=== PATIENT | male | born 1960 | race Caucasian/White ===

== ENCOUNTER → 2017-07-20 | Emergency (ER) | payer OTHER ==
[~2017-07-20] VITALS: Ht 175.3 cm; Wt 94.8 kg
[~2017-07-20] MED LIST: KETO10TA2 PO; MEDROLPACK PO; NORFLEX100MG PO
== END | disposition home or self-care (01) ==
LOC: ER 14:26
DX: M79.642 Pain in left hand (principal); M79.641 Pain in right hand

== ENCOUNTER 2023-03-06 20:04 | Inpatient (IN) | payer OTHER ==
[~2023-03-06] VITALS: Ht 172.7 cm; Wt 108.9 kg
--- NOTE | 2023-03-06 20:24 | NUR ---
SE RECIBE PTE DESORIENTADO X3 FAMILIAR REFIERE QUE [facility] LA [facility] VARIAS HORAS DESPUES LA FAMILIAR LO ENCONTRO VOMITADO Y NO RESPODIA. SE OBSERVA PTE CON CON DEBILIDAD Y NO SIGUE COMANDOS. SE REALIZA DEXTRO 143, SE REALIZA EKG Y SE PRESENTA A DR. CASTILLO. SE JOSELYN VITALES Y SE SEN EN OBSERVACION.
--- NOTE | 2023-03-06 21:06 | NUR ---
PTE EVALUADO POR MD [facility] [place] [facility] A PTE SE EDUCA A PE SOBRE EL MSIMO Y REFEIRE ENTENDER. SE LLEVA ACABO ORDENES BAJO MEDIDAS ACEPTICAS. PTE PEND A RESULTADOS DE LAB.
[2023-03-06 21:09] LABS: HEMATOCRIT 40.4 % (39.0-48.0); MEAN CELL VOLUME 96.7 fL (80.0-100.00); MEAN CORPUSCULAR HEMOGLOBIN 33.6 pg (27.00-32.0); MEAN CORPUSCULAR HGB CONC 34.7 g/dl (32.0-36.0); PLATELET COUNT 149 K/uL (150-450); RED BLOOD COUNT 4.18 M/uL (4.00-6.00)
[2023-03-06 21:24] LABS: ABG PH 7.397 (7.35-7.45); ABG pCO2 33.8 mmHg (35-45); BASE EXCESS -3.6 mmol/l; BICARBONATE 20.3 mmol/l (23-25); SaO2 89.8 %; Tco2 21.4 mmol/l
[2023-03-06 21:26] LABS: ABG PO2 58.9 mmHg (80-100)
[2023-03-06 21:27] LABS: allen test SATISFACTORY; o2 21 %; puncture site RADIAL RIGHT
[2023-03-06 21:42] LABS: CALCIUM 8.9 mg/dL (8.5-10.1); CREATININE SERUM 2.1 mg/dL (0.70-1.30); GFR 32.27; POTASSIUM 4.3 mEq/L (3.5-5.1)
[2023-03-06 21:48] LABS: URINE APPEARANCE Clear; URINE BILIRRUBIN Negative (NEGATIVE); URINE BLOOD Negative; URINE COLOR Yellow; URINE GLUCOSE Negative (NEGATIVE); URINE LEUKOCYTE Negative; URINE NITRATE Negative; URINE PROTEIN Negative (NEGATIVE)
[2023-03-06 21:51] LABS: URINE BACTERIA 12.5 uL (0.0-1933); URINE EPITHELIAL CELLS 5.2 uL (0.0-38.8); URINE RBC 6.7 uL (0.0-20.8); URINE WBC 3.7 uL (0.0-23.2)
[2023-03-07 02:14] LABS: INR 1.1; PARTIAL THROMBOPLASTIN TIME 22.6 SECONDS (22.0-34.0); PROTHROMBIN TIME 11.5 SECONDS (9.0-11.5)
[2023-03-07 15:38] LABS: ALBUMIN 3.2 gm/dL (3.4-5.0); BILIRUBIN TOTAL 0.4 mg/dL (0.3-1.2); BILIRUBIN,CONJUGATED 0.21 mg/dL (0.0-0.2); BILIRUBIN,UNCONJUGATED 0.19 mg/dL (0.0-0.6); TOTAL PROTEIN 6.4 gm/dL (6.4-8.2)
[2023-03-08 05:26] LABS: HEMATOCRIT 37.2 % (39.0-48.0); HEMOGLOBIN 12.4 g/dL (13-16.00); MEAN CELL VOLUME 98.2 fL (80.0-100.00); MEAN CORPUSCULAR HEMOGLOBIN 32.7 pg (27.00-32.0); MEAN CORPUSCULAR HGB CONC 33.3 g/dl (32.0-36.0); PLATELET COUNT 138 K/uL (150-450); RED BLOOD COUNT 3.79 M/uL (4.00-6.00); RED CELL DISTRIBUTION WIDTH 13.9 % (11.5-14.5)
[2023-03-08 06:00] LABS: ALBUMIN 2.8 gm/dL (3.4-5.0); BILIRUBIN TOTAL 0.27 mg/dL (0.3-1.2); CALCIUM 8.1 mg/dL (8.5-10.1); CREATININE SERUM 1.69 mg/dL (0.70-1.30); GFR 41.46; GLOBULINA 2.9 G/DL (2.4-3.5); PHOSPHOROUS 2.2 mg/dL (2.5-4.9); POTASSIUM 4.09 mEq/L (3.5-5.1); TOTAL PROTEIN 5.7 gm/dL (6.4-8.2)
[2023-03-08 06:01] LABS: C-REACTIVE PROTEIN 6.02 MG/DL (0.00-0.29)
[2023-03-10 08:03] LABS: CALCIUM 8.9 mg/dL (8.5-10.1); CREATININE SERUM 1.77 mg/dL (0.70-1.30); GFR 39.3; MAGNESIUM 2.1 mg/dL (1.8-2.4); POTASSIUM 3.79 mEq/L (3.5-5.1)
[2023-03-10 08:30] LABS: HEMOGLOBIN 14.1 g/dL (13-16.00); MEAN CELL VOLUME 98.1 fL (80.0-100.00); MEAN CORPUSCULAR HGB CONC 33.6 g/dl (32.0-36.0); PLATELET COUNT 162 K/uL (150-450); RED BLOOD COUNT 4.28 M/uL (4.00-6.00); RED CELL DISTRIBUTION WIDTH 14.2 % (11.5-14.5)
[2023-03-10 11:15] LABS: ABG PH 7.424 (7.35-7.45); ABG PO2 73.4 mmHg (80-100); ABG pCO2 33.9 mmHg (35-45); BASE EXCESS -1.9 mmol/l; BICARBONATE 21.7 mmol/l (23-25); SaO2 94.9 %; Tco2 22.7 mmol/l
[2023-03-10 11:41] LABS: allen test SATISFACTORY; o2 21 %; puncture site RADIAL LEFT
[2023-03-11 06:49] LABS: CALCIUM 8.7 mg/dL (8.5-10.1); CREATININE SERUM 1.53 mg/dL (0.70-1.30); GFR 46.5; MAGNESIUM 2.1 mg/dL (1.8-2.4); PHOSPHOROUS 3.3 mg/dL (2.5-4.9); POTASSIUM 3.74 mEq/L (3.5-5.1)
[2023-03-11 06:54] LABS: C-REACTIVE PROTEIN 1.06 MG/DL (0.00-0.29)
[2023-03-11] MEDS ORDERED: LEVOFLOXACIN500 MG PO (18:03)
[2023-03-11] MEDS ORDERED: INTESTINEX680 M1 PO (18:03)
[2023-03-11] MEDS ORDERED: Xopenex 0.63 MG/3 ML IH (18:05)
[2023-03-11] MEDS ORDERED: ARNUITY ELLIP100 MCG IH (18:08)
== END 2023-03-11 18:18 | disposition home or self-care (01) | DRG 178 ==
LOC: ER 20:04 → MEDI 23:03 → MEDJ 03-07 15:29
PROVIDERS: General Practice; Internal Medicine; Internal Medicine Infectious Disease; ADMIT Internal Medicine; ATTEND Internal Medicine
PROC: BW24ZZZ Computerized Tomography (CT Scan) of Chest and Abdomen (ICD-10-PCS; principal; 2023-03-06)
PROC: BW28ZZZ Computerized Tomography (CT Scan) of Head (ICD-10-PCS; 2023-03-06)
PROC: B24BZZZ Ultrasonography of Heart with Aorta (ICD-10-PCS; 2023-03-07)
DX: J69.0 Pneumonitis due to inhalation of food and vomit (principal); N17.9 Acute kidney failure, unspecified; J10.1 Influenza due to other identified influenza virus with other respiratory manifestations; G30.9 Alzheimer's disease, unspecified; F02.80 Dementia in other diseases classified elsewhere, unspecified severity, without behavioral disturbance, psychotic disturbance, mood disturbance, and anxiety; R13.19 Other dysphagia; E78.5 Hyperlipidemia, unspecified; I12.9 Hypertensive chronic kidney disease with stage 1 through stage 4 chronic kidney disease, or unspecified chronic kidney disease; E11.22 Type 2 diabetes mellitus with diabetic chronic kidney disease; Z79.4 Long term (current) use of insulin; Z99.81 Dependence on supplemental oxygen; E11.65 Type 2 diabetes mellitus with hyperglycemia